=== PATIENT | female | born 1980 | race Caucasian/White ===

== ENCOUNTER 2017-09-30 17:38 | Emergency (ER) | payer OTHER ==
[~2017-09-30] VITALS: Ht 160 cm; Wt 57.7 kg
[2017-09-30 17:43] VITALS: Ht 160 cm; Wt 57.7 kg
[2017-09-30] MEDS ORDERED: PROZAC10 MG PO (17:47)
[2017-09-30] MEDS ORDERED: OMEPRAZOLE20 M1 (17:47)
[2017-09-30] MEDS ORDERED: KLONOPIN0.5 MG PO (17:47)
[2017-09-30] MEDS ORDERED: HYDROCODON-ACE1 EAC7 PO (20:14)
[2017-09-30 21:00] VITALS: BP 108/63
== END 2017-09-30 21:01 | disposition home or self-care (01) ==
LOC: D.ER 17:38
DX: S82.831A Other fracture of upper and lower end of right fibula, initial encounter for closed fracture (principal); V09.9XXA Pedestrian injured in unspecified transport accident, initial encounter; Y93.01 Activity, walking, marching and hiking; Y92.488 Other paved roadways as the place of occurrence of the external cause; S16.1XXA Strain of muscle, fascia and tendon at neck level, initial encounter; S06.0X9A Concussion with loss of consciousness of unspecified duration, initial encounter; E07.9 Disorder of thyroid, unspecified; K21.9 Gastro-esophageal reflux disease without esophagitis